=== PATIENT | female | born 1950 | race Caucasian/White ===

== ENCOUNTER 2016-07-22 08:36 | Emergency (ER) | payer OTHER ==
[2016-07-22 08:43] VITALS: BP 149/89; PULSE 65; TEMP 97.9; BMI 22.6
[2016-07-22 09:23] LABS: URINE APPEARANCE CLEAR; URINE BILIRUBIN NEGATIVE (NEGATIVE); URINE BLOOD NEGATIVE (NEGATIVE); URINE COLOR LTYELLOW; URINE GLUCOSE (UA) NEGATIVE (NEGATIVE); URINE KETONE NEGATIVE (NEGATIVE); URINE LEUK ESTERASE NEGATIVE (NEGATIVE); URINE NITRITE NEGATIVE (NEGATIVE); URINE PROTEIN NEGATIVE (NEGATIVE); URINE UROBILINOGEN NEGATIVE E.U./dl (0.2-1.0)
[2016-07-22] MEDS ORDERED: KETOROLAC TROMETHAMINE 60 MG/2 ML VIAL IM ONE (09:49)
[2016-07-22] MEDS ORDERED: KETOROLAC TROMETHAMINE 60 MG/2 ML VIAL ONE (09:55)
--- NOTE | 2016-07-22 10:02 | PDOC ---
History of Present Illness - General Chief Complaint: Pain, Acute Stated Complaint: BACK PAIN Time Seen by Provider: 07/22/16 09:02 History Source: Patient Exam Limitations: No Limitations - History of Present Illness Initial Comments: 07/22/16 10:05 MY CHIEF COMPLAINT: RT. LOWER BACK PAIN HISTORY OF PRESENT ILLNESS: PT. IS A 66 year old female with no significant medical history here today complaining of right upper lumbar back pain with certain movements since yesterday. Patient reports that she has had intermittent pain on the right side down her buttocks and her leg however has not had this pain for approximately 5 days. Patient last took Advil PM last night with some relief of pain. Patient denies any urinary symptoms no hematuria, urgency, frequency or dysuria. Patient denies any nausea vomiting or fever. Patient reports that she does do exercises at her home daily. Pt. denies any Saddle anesthesia or any incontinency now or previously. Patient denies any recent heavy lifting. 07/22/16 10:07 Timing/Duration: intermittent Severity: moderate Past History - Past Medical History Allergies/Adverse Reactions: Allergies Allergy/AdvReac Type Severity Reaction Status Date / Time No Known Allergies Allergy Verified 07/22/16 08:43 Home Medications: Ambulatory Orders Cyclobenzaprine HCl [Flexeril 10 mg] 10 mg PO Q8H PRN #21 tablet 07/22/16 NK [No Known Home Medication] 07/22/16 Naproxen [Naprosyn -] 500 mg PO BID PRN #14 tablet 07/22/16 Other medical history: UPPER M[place]I - Psycho/Social/Smoking Cessation Hx Suicidal Ideation: No Smoking History: Never smoked Hx Alcohol Use: No Drug/Substance Use Hx: No Review of Systems - Review of Systems Able to Perform ROS?: Yes Constitutional: No: Symptoms Reported HEENTM: No: Symptoms Reported Respiratory: No: Symptoms reported Cardiac (ROS): No: Symptoms Reported ABD/GI: No: Symptoms Reported : No: Symptoms Reported Musculoskeletal: Yes: Back Pain (RIGHT UPPER LUMBAR PAIN ), Muscle Pain (RT. UPPER LUMBAR BACK PAIN ) Integumentary: No: Symptoms Reported Neurological: No: Symptoms reported *Physical Exam - Vital Signs Last Vital Signs Temp Pulse Resp BP Pulse Ox 97.9 F 65 18 149/89 99 07/22/16 08:40 07/22/16 08:40 07/22/16 08:40 07/22/16 08:40 07/22/16 08:40 - Physical Exam General Appearance: Yes: Appropriately Dressed Respiratory/Chest: positive: Lungs Clear, Normal Breath Sounds. negative: Chest Tender, Respiratory Distress Cardiovascular: positive: Regular Rhythm, Regular Rate, S1, S2 Musculoskeletal: positive: Normal Inspection, Other (MUSCULAR PAIN RT. UPPER LUMBAR BACK WITH PALPATION ). negative: CVA Tenderness, CVA Tenderness (R), CVA Tenderness (L), Vertebral Tenderness Extremity: negative: Normal Capillary Refill, Normal Inspection, Normal Range of Motion Integumentary: positive: Normal Color Neurologic: positive: Alert, Normal Response, Motor Strength 5/5 (LOWER EXTREMITIES), Other (NEGATIVE SLR B/L ). negative: Respond to painful stimul, Responsive, Numbness, Sensory Deficit (LEGS B/L ) Deep Tendon Reflexes: Ankle (L): 4+, Ankle (R): 4+, Knee (L): 4+, Knee (R): 4+ ED Treatment Course - ADDITIONAL ORDERS Additional order review: Laboratory Results 07/22/16 09:05 Urine Color Ltyellow Urine Appearance Clear Urine pH 5.0 Ur Specific [place] 1.017 Urine Protein Negative Urine Glucose (UA) Negative Urine Ketones Negative Urine Blood Negative Urine Nitrite Negative Urine Bilirubin Negative Urine Urobilinogen Negative Ur Leukocyte Esterase Negative Medical Decision Making - Medical Decision Making PT. IS A 66 year old female with no significant medical history here today complaining of right upper lumbar back pain with certain movements since yesterday. Patient reports that she has had intermittent pain on the right side down her buttocks and her leg however has not had this pain for approximately 5 days. Patient last took Advil PM last night with some relief of pain. Patient denies any urinary symptoms no hematuria, urgency, frequency or dysuria. Patient denies any nausea vomiting or fever. Patient reports that she does do exercises at her home daily. Pt. denies any Saddle anesthesia or any incontinency now or previously. Patient denies any recent heavy lifting. RIGHT LOWER LUMBAR BACK PAIN PLAN: URINALYSIS TORADOL 60 MG IM NOW THAN NAPROSYN 500 MG BID PRN PAIN # 14 TABS FLEXERIL 10 MG Q 8 HR PNR MUSCLE SPASM # 21 FOLLOW UP WITH ORTHO 07/22/16 09:49 Laboratory Tests 07/22/16 09:05 Urine Color Ltyellow Urine Appearance Clear Urine pH 5.0 Ur Specific [place] 1.017 Urine Protein Negative Urine Glucose (UA) Negative Urine Ketones Negative Urine Blood Negative Urine Nitrite Negative Urine Bilirubin Negative Urine Urobilinogen Negative Ur Leukocyte Esterase Negative 07/22/16 10:07 *DC/Admit/Observation/Transfer Diagnosis at time of Disposition: Back pain, acute Qualifiers: Back pain location: low back pain Back pain laterality: right Sciatica presence : without sciatica Qualified Code(s): M54.5 - Low back pain - Discharge Dispostion Disposition: HOME Condition at time of disposition: Stable - Prescriptions Prescriptions: Cyclobenzaprine HCl [Flexeril 10 mg] 10 mg PO Q8H PRN #21 tablet PRN Reason: Muscle Spasms Naproxen [Naprosyn -] 500 mg PO BID PRN #14 tablet PRN Reason: Pain - Referrals Referrals: Roma Gee MD [Primary Care Provider] - Bill Talley MD [Staff Physician] - - Patient Instructions Additional Instructions: AVOID ANY STRENOUS activities or exercise until you are cleared by orthopedist to resume Return to emergency room if symptoms worsen any numbness of legs or private area or any incontinency Follow-up with orthopedist as soon as possible Patient voiced understanding of discharge instructions and all questions were answered
== END 2016-07-22 10:16 | disposition home or self-care (01) ==
LOC: JERFT 08:36
PROC: 3E0233Z Introduction of Anti-inflammatory into Muscle, Percutaneous Approach (ICD-10-PCS; principal; 2016-07-22)
DX: M54.5 Low back pain (principal)
CPT/HCPCS: 81003; 96372; 99281-25